=== PATIENT | female | born 1980 | race Caucasian/White ===

== ENCOUNTER 2021-08-06 16:36 | Emergency (ER) | payer OTHER ==
[~2021-08-06] VITALS: Ht 170.2 cm; Wt 99.8 kg
[2021-08-06 17:01] VITALS: BP_SYST 161
[2021-08-06] MEDS ORDERED: ACET-2634 PO (17:30)
[2021-08-06] MEDS ORDERED: LIDO1ADH77 TD (17:30)
[2021-08-06] MEDS ORDERED: IBUP-1969 PO (17:30)
[2021-08-06 18:15] VITALS: BP_SYST 149
== END 2021-08-06 18:15 | disposition home or self-care (01) ==
LOC: SED 16:36
DX: M54.32 Sciatica, left side (principal); I10 Essential (primary) hypertension; Z79.899 Other long term (current) drug therapy
CPT/HCPCS: 99282